=== PATIENT | female | born 1985 | race American Indian/Alaskan Native ===

== ENCOUNTER 2020-08-17 10:42 | Day surgery (SDC) | payer OTHER ==
[~2020-08-17 10:42] MED LIST: SODIUM CHLORIDE 0.9% 1000 ML 1,000 ML IV SCH
--- NOTE | 2020-08-17 11:38 | Anesthesia Day of Surgery ---
Anesthesia Day of Surgery - Day of Surgery Patient Examined: Yes Patient H&P Reviewed: Yes Patient is NPO: Yes
--- NOTE | 2020-08-17 11:38 | Anesthesia Consultation ---
Anesthesia Consult and Med Hx Date of service: 08/17/20 - Airway Anesthetic Teeth Evaluation: Good ROM Head & Neck: Adequate Mental/Hyoid Distance: Adequate Mallampati Class: Class III Intubation Access Assessment: Possibly Difficult - Pre-Operative Health Status ASA Pre-Surgery Classification: ASA3 Proposed Anesthetic Plan: MAC - Pulmonary Hx Smoking: No Hx Asthma: Yes (last inhaler use 2wks ago) Hx Respiratory Symptoms: No - Cardiovascular System Hx Hypertension: Yes Hx Heart Attack/AMI: No - Central Nervous System CVA: No - Endocrine Hx Renal Disease: No Hx Liver Disease: No Hx Non-Insulin Dependent Diabetes: Yes Hx Thyroid Disease: No - Other Systems Hx Obesity: Yes (BMI 50) - Additional Comments Anesthesia Medical History Comments: Hx delayed emergence after GA in 2005. Has had anesthetics since then without complications.
[2020-08-17] MEDS ORDERED: propofoL 200 MG/20 ML VIAL IV ONE ×2 (12:07)
[2020-08-17] MEDS ORDERED: LIDOCAINE MPF (2%) 20 MG/1 ML VIAL 5 ML ONE ×2 (12:08)
--- NOTE | 2020-08-17 12:59 | Operative Report ---
`PROCEDURE: Esophagogastroduodenoscopy with biopsy. INDICATIONS: This is a 35-year-old obese -[place] female with an underlying history of diabetes mellitus, hypertension and a family history of cancer. The patient's aunt had breast cancer. The patient gives a history of blood clots in 2017 and breast reduction in 2005, has lately been having some abdominal pain, and on occasion, has had some GI bleeding. EGD and colonoscopy is to be done for further assessment. DESCRIPTION OF PROCEDURE: EGD was done after getting informed consent. Instrument was passed through the hypopharynx into the esophagus, which showed [id number] erosive esophagitis. Biopsy was done from the distal as well as the mid esophagus to assess for the severity of the erosive esophagitis and from the mid esophagus to assess for eosinophilic esophagitis. The stomach showed gastritis. No ulcers were noted in the straight or the retroverted view. The pylorus was patent. The duodenum and the first and second portion appeared normal. Biopsy was done from the second part to rule out for possible celiac disease. Additional biopsy was done from the gastric antrum, gastric body and angular incisura to rule out for H. pylori and atrophic gastritis. There was minimal bleeding associated with the procedure. No complications associated with the procedure. ASSESSMENT: Gastroesophageal reflux disease symptoms, abdominal pain, mild to moderate erosive esophagitis, gastritis, rule out celiac disease. PLAN: Treat the patient with PPI, have the patient avoid aspirin and aspirin-related products for the next few days and a colonoscopy to be done for further assessment. The procedure was done in the GI lab with assistance of the GI lab team, which included the GI nurse; Frank Reardon and with assistance of anesthesia. Colonoscopy will be done for further assessment for possible associated colitis, and the patient will be asked to follow up in the office in 1-2 weeks' time. The patient will also be treated with PPI because of the EGD findings of [id number] erosive esophagitis and gastritis. [facility]# [id number] KENIA/SHELBY
--- NOTE | 2020-08-17 12:59 | Procedure Note ---
Date of procedure: 08/17/20 Pre-op diagnosis: Abdominal Pain/ GERD/ Colitis/GI Bleeding Post-op diagnosis: other (Mild to Moderate Erosive Esophagitis/ Gastritis/ R/O Celiac Disease/R/o Microscopic colitis/ R/O Ileitis/ Cecal Ulceration (R/O Colitis or non-specific Colitis)) Procedure: EGD with Biopsy/ Colonoscopy with Biopsy [place] [facility] [place]: ELOISE NAIR Estimated blood loss: minimal Pathology: list Specimen disposition: to lab Condition: stable Disposition: same day (Treat with PPI,prn Bentyl and OTC Probiotic. Avoid aspirin and NSAID for 5 days; otherwise rresume home medication and follow up in 1 to 2 weeks ([phone]).)
--- NOTE | 2020-08-17 13:02 | Operative Report ---
PROCEDURE: Colonoscopy. INDICATIONS: This is an obese 35-year-old female who has a family history of cancer, lately has been now having some abdominal pain and on occasion GI bleeding. EGD had shown [id number] erosive esophagitis and gastritis. Biopsy was also done to rule out for possible associated celiac disease. Colonoscopy was done to make sure there was not any associated colitis present. DESCRIPTION OF PROCEDURE: Initial rectal exam was unremarkable. Instrument was passed through the rectum onto the cecum, which was identified with ileocecal valve and the appendiceal orifice. The terminal ileum was intubated, showed normal mucosa. Biopsy was done to rule out for possible ileitis. There were a few ulcers noted in the cecum close to the ileocecal valve, which may have been nonspecific in type. Photodocumentation and biopsy was obtained, the biopsies come back suggestive of colitis. The patient will be placed on treatment for that. The remaining part of the cecum, ascending colon, transverse colon, descending colon, and sigmoid showed normal mucosa. Random biopsies were done throughout the colon including the rectum to rule out for possible microscopic colitis and the rectum showed minor internal hemorrhoid on the retroverted view. There was minimal bleeding associated with the procedure. ASSESSMENT: Abdominal pain, colitis with some cecal ulceration which also may have been nonspecific in type. Rule out ileitis, minor internal hemorrhoid. PLAN: To treat the patient with PPI because of the EGD findings of erosive esophagitis, gastritis, p.r.n. dose of Bentyl and probiotics. If the biopsies are suggestive of colitis, the patient will also be placed on treatment for the colitis. The patient will be asked to avoid aspirin and aspirin-related products for the next few days and follow up in the office in 1-2 weeks' time. The procedure was done in the GI lab with assistance of the GI lab team, which included the GI nurse and the signals collection technicianFrank patel and with assistance of anesthesia. JOB# [id number] KENIA/SHELBY
[2020-08-17 14:05] VITALS: BP 134/86
--- NOTE | 2020-08-17 17:49 | Post Anesthesia Evaluation ---
- Post Anesthesia Evaluation Patient Participated: Yes Airway Patent: Yes Stable Respiratory Function: Yes Nausea/Vomiting: No Temp > 96.8F: Yes Pain Manageable: Yes Adequeate Hydration: Yes Anesthesia Complications: No
== END 2020-08-17 14:15 | disposition home or self-care (01) ==
LOC: GIO 10:42
DX: R10.9 Unspecified abdominal pain (principal); K52.9 Noninfective gastroenteritis and colitis, unspecified; K64.8 Other hemorrhoids; I10 Essential (primary) hypertension; E11.9 Type 2 diabetes mellitus without complications; K21.00 Gastro-esophageal reflux disease with esophagitis, without bleeding; E66.9 Obesity, unspecified; J45.909 Unspecified asthma, uncomplicated; K29.70 Gastritis, unspecified, without bleeding; Z91.041 Radiographic dye allergy status; Z91.040 Latex allergy status; Z80.8 Family history of malignant neoplasm of other organs or systems; Z91.013 Allergy to seafood; Z88.0 Allergy status to penicillin; Z88.6 Allergy status to analgesic agent; Z88.8 Allergy status to other drugs, medicaments and biological substances; Z79.899 Other long term (current) drug therapy; Z79.84 Long term (current) use of oral hypoglycemic drugs; Z68.43 Body mass index [BMI] 50.0-59.9, adult
CPT/HCPCS: 43239; 45380; 82962; 88305; 88342; J2704; J7030